=== PATIENT | female | born 1990 | race Caucasian/White ===

== ENCOUNTER → 2017-07-30 | Day surgery (SDC) | payer BC ==
[~2017-07-30] VITALS: Ht 157.5 cm; Wt 83.7 kg
[~2017-07-30] MED LIST: *ONDANSETRON 4 MG VIAL PERIprocedural Use ONLY ONE; ACETAMINOPHEN/HYDROcodone 325 MG/5 MG TAB PO PRN; BACITRACIN TOP OINT 15 GM TUBE ONE; BUPIVACAINE/EPINEPHRINE 0.5% 50 ML VIAL ONE; CHLORHEXIDINE GLUCONATE 2 % 1 PACK (2 CLOTHS) TOPICAL PRN; DEPA250T PO; DEPA250T2 PO; DEPA500T3 PO; DIVALPROEX SODIUM DELAYED RELEASE 250 MG TAB PO SCH; DO NOT ADM ANY ANTICOAGULANT DRUGS PRN; FOLI400T PO; FOLIC ACID 1 MG TAB PO SCH; INSULIN HUMAN REGULAR 1,000 UNITS/10 ML VIAL SQ PRN; LACTATED RINGER'S 1000 ML IV PRN; LEVOTHYROXINE SODIUM 112 MCG TAB PO SCH; METOPROLOL TARTRATE 25 MG TAB PO PRN; NORC5TAB PO; POVIDONE IODINE 5% (ANTISEPSIS KIT) 4 APPLICATIONS EACH NARE PRN; SODIUM CHLORID 0.9% 500 ML IV PRN; SYNT112T PO; SYNT25TA; diphenhydrAMINE HCL 50 MG/ML VIAL IV PRN
[2017-07-30 07:36] LABS: AUTOMATED NEUTROPHIL # 3.2 TH/MM3 (1.8-7.7); BASOPHIL # 0.1 TH/MM3 (0-0.2); BASOPHIL % 0.7 % (0.0-2.0); EOSINOPHIL # 0.2 TH/MM3 (0-0.4); EOSINOPHIL % 2.2 % (0.0-4.0); HEMO FLAGS DIFF FINAL; LYMPH % 48.4 % (9.0-44.0); LYMPHOCYTE # 3.8 TH/MM3 (1.0-4.8); MEAN CELL VOLUME 94.2 FL (80.0-100.0); MONO % 7.2 % (0.0-8.0); NEUT % 41.5 % (16.0-70.0); PLATELET COUNT 223 TH/MM3 (150-450); RED BLOOD COUNT 4.13 MIL/MM3 (4.00-5.30); RED CELL DISTRIBUTION WIDTH 12.8 % (11.6-17.2); WHITE BLOOD COUNT 7.8 TH/MM3 (4.0-11.0)
[2017-07-30 12:00] VITALS: BP 122/80; PULSE 88; RESP 20; TEMP 98; O2SAT 95
--- NOTE | 2017-07-30 13:00 | MP ---
cc: KASSANDRA CORDERO M.D., JOSEPH D. M.D. DATE OF SURGERY 07/30/2017 PREOPERATIVE DIAGNOSES Hypercalcemia. Hyperparathyroidism. POSTOPERATIVE DIAGNOSES Hypercalcemia. Hyperparathyroidism. PROCEDURE Identification of parathyroid adenoma, right lower gland. Right lower parathyroidectomy for parathyroid adenoma. with Neuro monitoring and identification of recurrent nerve right side ANESTHESIA General. SURGEON Dr. Dominique INDICATIONS This is a pleasant 26-year-old female who has had problems with hypercalcemia. She has had fatigue and had high calcium, high PTH on the previous workup. This has been going on for about two years. She was sent to me for evaluation. She was found to be PTH elevated and calcium elevated as well. She had a CT scan done and an ultrasound which was read as normal. The sestamibi scan appeared to me that there was something on the right inferior gland. Plans were made for above. PROCEDURE The patient was taken to the operating room, placed in supine position after anesthesia. She had previously been injected with the radioactive technetium. Hot spot and a higher count could be seen on the right inferior gland in the high 300s to around 400, compared to the other three sides in the 200s. We make a small curvilinear incision on the right side of her neck, dissect down through the platysma muscle, retracting the strap muscles medially. We are able to identify the recurrent laryngeal nerve with the neural monitor. After identifying the nerve, the parathyroid adenoma is just posterior and very adherent to the nerve. Using a careful, meticulous dissection, we are able to tease this off the parathyroid adenoma. We get a hot count with the parathyroid adenoma. We then use a harmonic scalpel to divide the blood supply to the parathyroid adenoma and the right anterior gland. This is sent down to pathology. Frozen section shows hypercellular tissue. We then examine four quadrants and the counts are very, very similar with no longer a high count in the right side. After we remove the parathyroid gland we did get a count on the parathyroid tissue and it was in the high 100s. We then check the nerve again with a good signal. We then irrigate. Hemostasis assured. We close the platysma with a 3-0 Vicryl and the skin is closed with a 5-0 Monocryl. Steri-Strips applied. Sterile bandage applied. The patient tolerated the procedure well with no immediate postop complications. MD STEVEN Hendricks/LEANA /9:59 AM /12:48 PM [place]
== END | disposition home or self-care (01) ==
LOC: HSDC 05:11
PROVIDERS: ATTEND Surgery
DX: D35.1 Benign neoplasm of parathyroid gland (principal); E21.3 Hyperparathyroidism, unspecified
CPT/HCPCS: 00320; 60500; 78808; 85025; 88305; 88331; A9500; J2405; J7120